=== PATIENT | female | born 1965 ===

== ENCOUNTER 2023-07-04 11:00 | Outpatient (RCR) | payer OTHER, SELFPAY | END 2023-07-04 12:00 | disposition home or self-care (01) | LOC: HO.PT 11:00 | PROVIDERS: PCP Internal Medicine; Visit Provider Internal Medicine Gastroenterology | DX: M99.05 Segmental and somatic dysfunction of pelvic region (principal) | CPT/HCPCS: 97110; 97112; 97140; 97162 ==